=== PATIENT | female | born 1955 | race Caucasian/White ===

== ENCOUNTER 2016-11-10 14:23 | Inpatient (IN) | payer OTHER ==
[~2016-11-10] VITALS: Ht 154.9 cm; Wt 52.0 kg
[2016-11-10] VITALS (9 sets, daily range): BP systolic 110–165; BP diastolic 66–80; PULSE 60–78; RESP 15–17; TEMP 98.6; O2SAT 95–100
[2016-11-10] MEDS ORDERED: SODIUM CHLORIDE 0.9% FLUSH 10 ML FLUSH IVF PRN (14:30)
[2016-11-10] MEDS ORDERED: ASPI81CH CHEW (14:37)
[2016-11-10] MEDS ORDERED: PRED5TAB PO (14:37)
[2016-11-10] MEDS ORDERED: CLOB0.0513 (14:37)
[2016-11-10] MEDS ORDERED: ATOR40TA16 PO (14:37)
[2016-11-10] MEDS ORDERED: METO50TA PO (14:37)
[2016-11-10] MEDS ORDERED: TACR1 PO (14:37)
[2016-11-10] MEDS ORDERED: BACT800T5 PO (14:37)
[2016-11-10] MEDS ORDERED: PLAV75TA29 PO (14:37)
[2016-11-10] MEDS ORDERED: [UNRECOGNIZED DRUG - CODE] (14:37)
[2016-11-10] MEDS ORDERED: LORA-373 PO (14:38)
[2016-11-10] MEDS ORDERED: BENA25CA4 (14:38)
[2016-11-10 15:31] LABS: AUTOMATED NEUTROPHIL # 7.9 TH/MM3 (1.8-7.7); BASOPHIL % 0.4 % (0.0-2.0); EOSINOPHIL % 0.4 % (0.0-4.0); HEMATOCRIT 35.1 % (35.0-46.0); HEMO FLAGS DIFF FINAL; LYMPH % 18.9 % (9.0-44.0); MEAN CELL VOLUME 83.4 FL (80.0-100.0); MEAN CORPUSCULAR HEMOGLOBIN 27.7 PG (27.0-34.0); MEAN CORPUSCULAR HGB CONC 33.2 % (32.0-36.0); MONO % 6.3 % (0.0-8.0); PLATELET COUNT 307 TH/MM3 (150-450); RED CELL DISTRIBUTION WIDTH 16.5 % (11.6-17.2); WHITE BLOOD COUNT 10.6 TH/MM3 (4.0-11.0)
[2016-11-10 15:41] LABS: APTT (PATIENT) 21.3 SEC (24.3-30.1); INTERNATIONAL NORMALIZED RATIO 0.9 RATIO; PROTHROMBIN TIME - PATIENT 9.9 SEC (9.8-11.6)
--- NOTE | 2016-11-10 15:41 | RADRPT ---
EXAM DATE/TIME: 11/10/2016 14:33 [place] COMPARISON: No previous studies available for comparison. INDICATIONS : Chest pressure today. Four cardiac stents placed last week. MEDICAL HISTORY : Hydronephrosis. Asthma. SURGICAL HISTORY : Coronary artery stent. Cholecystectomy. Bone marrow transplant. ENCOUNTER: Initial ACUITY: 1 day PAIN SCORE: 3/10 LOCATION: Bilateral chest FINDINGS: A single view of the chest demonstrates the lungs to be symmetrically aerated without evidence of mas s, infiltrate or effusion. The cardiomediastinal contours are unremarkable. Osseous structures are intact. CONCLUSION: No acute disease. Lul Feranndo MD on November 10, 2016 at 15:37 Board Certified Radiologist. This report was verified electronically.
[2016-11-10] MEDS ORDERED: NITROGLYCERIN 2% OINT 1 GM PACKET TOP ONE (15:45)
[2016-11-10 15:46] LABS: ALT (GPT) 46 U/L (10-53); ANION GAP 10 MEQ/L (5-15); AST (GOT) 44 U/L (15-37); BICARBONATE 23.7 MEQ/L (21.0-32.0); BLOOD UREA NITROGEN 18 MG/DL (7-18); CHLORIDE 102 MEQ/L (98-107); GLOMERULAR FILTRATION RATE 87 ML/MIN (>89); MAGNESIUM 2.3 MG/DL (1.5-2.5); POTASSIUM 4.2 MEQ/L (3.5-5.1); SODIUM (NA) 136 MEQ/L (136-145)
[2016-11-10 15:50] LABS: ALKALINE PHOSPHATASE 116 U/L (45-117); CREATINE KINASE 117 U/L (26-192); TOTAL BILIRUBIN ADULT 0.7 MG/DL (0.2-1.0)
--- NOTE | 2016-11-10 15:55 | PD ---
HPI Chief Complaint: Chest Pain Time Seen by Provider: 14:28 Travel History International Travel<30 days: No Contact w/Intl Traveler<30days: No Traveled to known affect area: No History of Present Illness HPI 61-year-old female presents with central chest pressure. She states 5 days ago she had 2 stents placed after having a blockage. She was given 4 baby aspirin and 2 nitroglycerin prior to arrival. Her chest pain is nearly resolved currently. She states it was 8 and now is a 3. She denies other concurrent complaints. She denies specific modifying factors. States her heart catheterization was at [facility] [place] [facility]. She states today she was at the [place] for follow-up and she got sent here for further care given she had chest pain. Quality is pressure. PFSH Past Medical History Asthma: Yes Genitourinary: Yes (hydronephrosis) Medical other: Yes (bone marrow transplant) Myocardial Infarction: Yes (2003) Influenza Vaccination: No Menopausal: Yes Past Surgical History Cardiac Surgery: Yes (left athroscopy) Cholecystectomy: Yes Eye Surgery: Yes (bilateral cataracts) Social History Alcohol Use: No Tobacco Use: No Substance Use: No Allergies-Medications (Allergen,Severity, Reaction): Coded Allergies: No Known Allergies (Unverified , 11/10/16) Reported Meds & Prescriptions Reported Meds & Active Scripts Active Reported Benadryl Allergy (Diphenhydramine HCl) 25 Mg Cap Lorazepam 0.5 Mg Tab 0.5 Mg PO DAILY PRN Hypotears Opth Oint (Artificial Tear Opth Oint) 1 Oint 1 Clobetasol Emollient Topical 0.05% Cream Bactrim DS (Sulfamethoxazole-Trimethoprim) 800-160 Mg Tab 1 Tab PO BID Atorvastatin (Atorvastatin Calcium) 40 Mg Tab 40 Mg PO HS Plavix (Clopidogrel Bisulfate) 75 Mg Tab 75 Mg PO DAILY Aspirin 81 Mg Chew 81 Mg CHEW DAILY Prograf (Tacrolimus) 1 Mg Cap 1 Mg PO BID Prednisone 5 Mg Tab 5 Mg PO BID Metoprolol Tartrate 50 Mg Tab 50 Mg PO BID Review of Systems Except as stated in HPI: all other systems reviewed are Neg Physical Exam Narrative GENERAL: Well-nourished, well-developed patient. SKIN: Warm and dry. HEAD: Normocephalic and atraumatic. EYES: No injection or drainage. ENT: No nasal drainage noted. NECK: Supple, trachea midline. CARDIOVASCULAR: Regular rate and rhythm RESPIRATORY: No increased effort. No accessory muscle use. NEUROLOGICAL: Awake and alert. Motor and sensory grossly within normal limits. Normal speech. Data Data Last Documented VS Vital Signs Date Time Temp Pulse Resp B/P Pulse Ox O2 Delivery O2 Flow Rate FiO2 11/10/16 16:00 66 17 135/70 100 11/10/16 14:39 Room Air 11/10/16 14:25 98.6 Orders Electrocardiogram (11/10/16 14:28) B-Type Natriuretic Peptide (11/10/16 14:28) Ckmb (Isoenzyme) Profile (11/10/16 14:28) Complete Blood Count With Diff (11/10/16 14:) Comprehensive Metabolic Panel (11/10/16 14:) Magnesium (Mg) (11/10/16 14:28) Prothrombin Time / Inr (Pt) (11/10/16 14:) Act Partial Throm Time (Ptt) (11/10/16 14:28) Troponin I (11/10/16 14:28) Chest, Single Ap (11/10/16 14:28) Ecg Monitoring (11/10/16 14:28) Bilateral Bp Monitoring (11/10/16 14:28) Iv Access Insert/Monitor (11/10/16 14:28) Oximetry (11/10/16 14:28) Sodium Chloride 0.9% Flush (Ns Flush) (11/10/16 14:30) Nitroglycerin 2% Oint (Nitroglycerin 2% (11/10/16 15:45) CKMB (11/10/16 15:00) CKMB% (11/10/16 15:00) Consult Cardiology (11/10/16 ) Admit Order (Ed Use Only) (11/10/16 16:33) Labs Laboratory Tests Test 11/10/16 15:00 White Blood Count 10.6 TH/MM3 Red Blood Count 4.20 MIL/MM3 Hemoglobin 11.7 GM/DL Hematocrit 35.1 % Mean Corpuscular Volume 83.4 FL Mean Corpuscular Hemoglobin 27.7 PG Mean Corpuscular Hemoglobin 33.2 % Concent Red Cell Distribution Width 16.5 % Platelet Count 307 TH/MM3 Mean Platelet Volume 8.2 FL Neutrophils (%) (Auto) 74.0 % Lymphocytes (%) (Auto) 18.9 % Monocytes (%) (Auto) 6.3 % Eosinophils (%) (Auto) 0.4 % Basophils (%) (Auto) 0.4 % Neutrophils # (Auto) 7.9 TH/MM3 Lymphocytes # (Auto) 2.0 TH/MM3 Monocytes # (Auto) 0.7 TH/MM3 Eosinophils # (Auto) 0.0 TH/MM3 Basophils # (Auto) 0.0 TH/MM3 CBC Comment DIFF FINAL Differential Comment Prothrombin Time 9.9 SEC Prothromb Time International 0.9 RATIO Ratio Activated Partial 21.3 SEC Thromboplast Time Sodium Level 136 MEQ/L Potassium Level 4.2 MEQ/L Chloride Level 102 MEQ/L Carbon Dioxide Level 23.7 MEQ/L Anion Gap 10 MEQ/L Blood Urea Nitrogen 18 MG/DL Creatinine 0.68 MG/DL Estimat Glomerular Filtration 87 ML/MIN Rate Random Glucose 97 MG/DL Calcium Level 9.0 MG/DL Magnesium Level 2.3 MG/DL Total Bilirubin 0.7 MG/DL Aspartate Amino Transf 44 U/L (AST/SGOT) Alanine Aminotransferase 46 U/L (ALT/SGPT) Alkaline Phosphatase 116 U/L Total Creatine Kinase 117 U/L Creatine Kinase MB 1.9 NG/ML Troponin I 0.24 NG/ML B-Type Natriuretic Peptide 49 PG/ML Total Protein 6.8 GM/DL Albumin 3.3 GM/DL [facility] Medical Decision Making Medical Screen Exam Complete: Yes Emergency Medical Condition: Yes Medical Record Reviewed: Yes (past history confirmed, cardiac catheterization report shows successful stent to proximal and mid LAD on 11/05/16) Interpretation(s) EKG shows normal sinus rhythm at 80 without STEMI criteria CBC & BMP Diagram 11/10/16 15:00 Last 24 hours Impressions Chest X-Ray 11/10/16 1428 Signed Impressions: Service Date/Time: October 14:33 - CONCLUSION: No acute disease. Lul Fernando MD Differential Diagnosis [place], strain, gastritis, vasospasm Narrative Course Will check blood work, chest x-ray, EKG and dose with Nitropaste and reevaluate pain free, agrees to admit Physician Communication Physician Communication dr castellon states npo after midnight and will follow dr roberson agrees to admit Diagnosis Primary Impression: Unstable angina Admitting Information Admitting Physician Requests: Admit Charisma Aguayo MD November 10, 2016:55
[2016-11-10 16:01] LABS: CKMB 1.9 NG/ML (0.5-3.6)
[2016-11-10] MEDS ORDERED: ACETAMINOPHEN 325 MG TAB PO PRN (17:15)
[2016-11-10] MEDS ORDERED: LORazepam 0.5 MG TAB PO PRN (17:15)
[2016-11-10] MEDS ORDERED: MORPHINE SULFATE 4 MG/ML INJ IV PRN (17:15)
[2016-11-10] MEDS ORDERED: HEPARIN-D5W INJ 250 ML IV SCH (17:15)
[2016-11-10] MEDS ORDERED: ONDANSETRON HCL 4 MG/2 ML VIAL IV PRN (17:15)
[2016-11-10] MEDS ORDERED: HEPARIN SODIUM - IV 10,000 UNITS/10 ML VIAL IV ONE (17:15)
--- NOTE | 2016-11-10 17:24 | HHI.HP ---
[facility] Service [place] [facility] Primary Care Physician [facility] Admission Diagnosis unstable angina Diagnoses: Chief Complaint: Chest pain Travel History International Travel<30 Days: No Contact w/Intl Traveler <30 Da: No Traveled to Known Affected Are: No History of Present Illness 61-year-old female past medical history of UT, coronary disease status post stent placement in 2003 and recent stent placement 2 on 11/05/16 who presented with chest pressure. Patient stated that yesterday she felt nauseated yesterday but that resolved on its own. Today she stated that she felt the same way and then started feeling cloudy then started to have chest pressure. Patient stated [facility] which relieved the chest pressure. Patient stated the chest pressure lasted about 3 minutes. She stated during that visit her blood pressure was in the 180s over 90. Patient stated that she was concerned because after she had stent placement done about one week ago she was doing well. She stated that she was asymptomatic. Patient had ANDERSON stents of the proximal and mid LAD done in [place]. During the interview patient stated that the Nitropaste did help with her chest pressure but then it came back. By the time of the end of the interview she stated that the chest pressure resolved. Patient denies any anxiety. no hx of any bleeds. She stated she has been on heparin gtt in the past with no issues. Review of Systems Constitutional: COMPLAINS OF: Change in appetite, DENIES: Diaphoretic episodes , Fatigue, Fever, Weight gain, Weight loss, Chills, Dizziness, Night Sweats Endocrine: DENIES: Abnorml menstrual pattern, Heat/cold intolerance, Polydipsia , Polyuria, Polyphagia Eyes: DENIES: Blurred vision, Diplopia, Eye inflammation, Eye pain, Vision loss , Photosensitivity, Double Vision Ears, nose, mouth, throat: DENIES: Tinnitus, Hearing loss, Vertigo, Nasal discharge, Oral lesions, Throat pain, Hoarseness, Ear Pain, Running Nose, Epistaxis, Sinus Pain, Toothache, Odynophagia Respiratory: DENIES: Apneas, Cough, Snoring, Wheezing, Hemoptysis, Sputum production, Shortness of breath Cardiovascular: COMPLAINS OF: Chest pain, DENIES: Palpitations, Syncope, Dyspnea on Exertion, PND, Lower Extremity Edema, Orthopnea, Claudication Gastrointestinal: COMPLAINS OF: Nausea, DENIES: Abdominal pain, Black stools, Bloody stools, Constipation, Diarrhea, Vomiting, Difficulty Swallowing, Anorexia Genitourinary: DENIES: Abnormal vaginal bleeding, Dysmenorrhea, Dyspareunia, Sexual dysfunction, Urinary frequency, Urinary incontinence, Urgency, Hematuria , Dysuria, Nocturia, Vaginal discharge Musculoskeletal: DENIES: Joint pain, Muscle aches, Stiffness, Joint Swelling, Back pain, Neck pain Integumentary: DENIES: Abnormal pigmentation, Pruritus, Rash, Nail changes, Breast masses, Breast skin changes, Nipple discharge Hematologic/lymphatic: DENIES: Bruising, Lymphadenopathy Immunologic/allergic: DENIES: Eczema, Urticaria Neurologic: DENIES: Abnormal gait, Headache, Localized weakness, Paresthesias, Seizures, Speech Problems, Tremor, Poor Balance Psychiatric: DENIES: Anxiety, Confusion, Mood changes, Depression, Hallucinations, Agitation, Suicidal Ideation, Homicidal Ideation, Delusions Past Family Social History Past Medical History History leukemia Asthma Chronic bronchitis History of UT Coronary artery disease Hyperlipidemia Past Surgical History Bone marrow transplant Bilateral ureteral stent placement secondary to obstruction Left knee arthroplasty Cholecystectomy Reported Medications Benadryl Allergy (Diphenhydramine HCl) 25 Mg Cap Lorazepam 0.5 Mg Tab 0.5 Mg PO DAILY PRN Hypotears Opth Oint (Artificial Tear Opth Oint) 1 Oint 1 Clobetasol Emollient Topical 0.05% Cream Bactrim DS (Sulfamethoxazole-Trimethoprim) 800-160 Mg Tab 1 Tab PO BID Atorvastatin (Atorvastatin Calcium) 40 Mg Tab 40 Mg PO HS Plavix (Clopidogrel Bisulfate) 75 Mg Tab 75 Mg PO DAILY Aspirin 81 Mg Chew 81 Mg CHEW DAILY Prograf (Tacrolimus) 1 Mg Cap 1 Mg PO BID Prednisone 5 Mg Tab 5 Mg PO BID Metoprolol Tartrate 50 Mg Tab 50 Mg PO BID Allergies: Coded Allergies: No Known Allergies (Unverified , 11/10/16) Active Ordered Medications Current Medications Sodium Chloride (NS Flush) 2 ml UNSCH PRN IVF FLUSH AFTER USING IV ACCESS; Start 11/10/16 at 14:30 Nitroglycerin (Nitroglycerin 2% Oint) 1 inch ONCE ONCE TOP Last administered on 11/10/16t 15:59; Start 11/10/16 at 15:45; Stop 11/10/16 at 15:46; Status DC Family History Patient denied any family history of cardiovascular disease, diabetes, any autoimmune, or cancer in the family. Social History Patient lives at home with her . Denies tobacco, alcohol, or illicit drug use. Physical Exam Vital Signs Vital Signs Date Time Temp Pulse Resp B/P Pulse Ox O2 Delivery O2 Flow Rate FiO2 11/10/16 16:00 66 17 135/70 100 11/10/16 15:11 60 15 139/74 100 11/10/16 14:39 70 15 165/80 98 Room Air 142/75 11/10/16 14:25 98.6 76 15 125/73 95 11/10/16 14:25 73 15 95 Room Air Physical Exam GENERAL: This is a well-nourished, well-developed patient, in no apparent distress. SKIN: No rashes, ecchymoses or lesions. Cool and dry. HEAD: Atraumatic. Normocephalic. No temporal or scalp tenderness. EYES: Pupils equal round and reactive. Extraocular motions intact. No scleral icterus. No injection or drainage. ENT: Nose without bleeding, purulent drainage or septal hematoma. Throat without erythema, tonsillar hypertrophy or exudate. Uvula midline. Airway patent. NECK: Trachea midline. No JVD or lymphadenopathy. Supple, nontender, no meningeal signs. CARDIOVASCULAR: Regular rate and rhythm without murmurs, gallops, or rubs. no TTP on the chest. RESPIRATORY: Transmitted upper respiratory sounds. Breath sounds equal bilaterally. No wheezes, rales, or rhonchi. GASTROINTESTINAL: Abdomen soft, non-tender, nondistended. No hepato-splenomegaly , or palpable masses. No guarding. MUSCULOSKELETAL: Extremities without clubbing, cyanosis, or edema. No joint tenderness, effusion, or edema noted. No calf tenderness. Negative Homans sign bilaterally. NEUROLOGICAL: Awake and alert. Cranial nerves II through XII intact. Motor and sensory grossly within normal limits. Five out of 5 muscle strength in all muscle groups. Normal speech. Laboratory Laboratory Tests Test 11/10/16 15:00 White Blood Count 10.6 Red Blood Count 4.20 Hemoglobin 11.7 Hematocrit 35.1 Mean Corpuscular Volume 83.4 Mean Corpuscular Hemoglobin 27.7 Mean Corpuscular Hemoglobin 33.2 Concent Red Cell Distribution Width 16.5 Platelet Count 307 Mean Platelet Volume 8.2 Neutrophils (%) (Auto) 74.0 Lymphocytes (%) (Auto) 18.9 Monocytes (%) (Auto) 6.3 Eosinophils (%) (Auto) 0.4 Basophils (%) (Auto) 0.4 Neutrophils # (Auto) 7.9 Lymphocytes # (Auto) 2.0 Monocytes # (Auto) 0.7 Eosinophils # (Auto) 0.0 Basophils # (Auto) 0.0 CBC Comment DIFF FINAL Differential Comment Prothrombin Time 9.9 Prothromb Time International 0.9 Ratio Activated Partial 21.3 Thromboplast Time Sodium Level 136 Potassium Level 4.2 Chloride Level 102 Carbon Dioxide Level 23.7 Anion Gap 10 Blood Urea Nitrogen 18 Creatinine 0.68 Estimat Glomerular Filtration 87 Rate Random Glucose 97 Calcium Level 9.0 Magnesium Level 2.3 Total Bilirubin 0.7 Aspartate Amino Transf 44 (AST/SGOT) Alanine Aminotransferase 46 (ALT/SGPT) Alkaline Phosphatase 116 Total Creatine Kinase 117 Creatine Kinase MB 1.9 Troponin I 0.24 B-Type Natriuretic Peptide 49 Total Protein 6.8 Albumin 3.3 Result Diagram: 11/10/16 1500 11/10/16 1500 Imaging Last Impressions Chest X-Ray 11/10/16 1428 Signed Impressions: Service Date/Time: October 14:33 - CONCLUSION: No acute disease. Lul Fernando MD Assessment and Plan Assessment and Plan 61-year-old female with history of UT, coronary artery disease status post stent placement in 2003 and 11/05/16 PCI stent with ANDERSON of the proximal and mid LAD Chest pain -Concerning for unstable angina due to elevated troponin and clinical presentation. Patient is high risk. -Troponins are elevated at 0.24. Will continue to trend. -Line Manager already consulted by Dr. Aguayo and recommend cardiac catheterization by Dr. Bourgeois tomorrow if troponins continue to trend up. -Due to concerns of unstable angina will start heparin drip. Continue with aspirin. We'll also continue with Nitropaste every 6 hours, morphine IV when necessary for chest pain, restart metoprolol. -Patient told to let provider know she has chest pain. Elevated troponins -concerning for NSTEMI. see treatment as above. History of UT and coronary artery disease status post stent placement of proximal and mid LAD -Will continue with home regimen. Hyperlipidemia/chronic bronchitis/asthma/history of leukemia -Restart home regimen. DVT prophylaxis -Patient will be on a heparin drip. Code Status full Discussed Condition With patient and her son and daughter at bedside. Physician Certification 2 Midnight Certification Type: Admission for Inpatient Services Order for Inpatient Services The services are ordered in accordance with Medicare regulations or non- Medicare payer requirements, as applicable. In the case of services not specified as inpatient-only, they are appropriately provided as inpatient services in accordance with the 2-midnight benchmark. Estimated LOS (days): 2 2 days is the estimated time the patient will need to remain in the hospital, assuming treatment plan goals are met and no additional complications. Post-Hospital Plan: Kailee Leblanc MD November 10, 2016 17:24
--- NOTE | 2016-11-10 17:55 | EKG ---
Date Performed: 11/10/2016 Time Performed: 14:26:00 PTAGE: 61 years EKG: Sinus rhythm POSSIBLE LEFT ATRIAL ENLARGEMENT BORDERLINE ECG INTERPRETATION BASED ON A DEFAULT AGE OF 40 YEARS NO PREVIOUS TRACING DOCTOR: Sarbjit Mclaughlin Interpretating Date/Time 11/10/2016 17:53:41
[2016-11-10] MEDS: NITROGLYCERIN 2% OINT 1 GM PACKET TOP SCH (18:34)
[2016-11-10] MEDS: SODIUM CHLOR 0.9% 1000 ML INJ 1,000 ML IV SCH (18:34)
[2016-11-10] MEDS: TACROLIMUS 1 MG CAP PO SCH (21:00)
[2016-11-10] MEDS: predniSONE 5 MG TAB PO SCH (21:00)
[2016-11-10] MEDS: SULFAMETHOXAZOLE-TRIMETHOPRIM DS 800-160 MG TAB PO SCH (21:00)
[2016-11-10] MEDS: SODIUM CHLORIDE 0.9% FLUSH 10 ML FLUSH IV FLUSH SCH (22:47)
[2016-11-10] MEDS: METOPROLOL TARTRATE 50 MG TAB PO SCH (22:48)
[2016-11-10] MEDS: ATORVASTATIN 40 MG TAB PO SCH (22:48)
[2016-11-10] MEDS ORDERED: HEPARIN SODIUM - IV 10,000 UNITS/10 ML VIAL IV PRN ×2 (23:15)
[2016-11-11] VITALS (18 sets, daily range): BP systolic 93–146; BP diastolic 49–77; PULSE 60–96; RESP 16–20; TEMP 97.9–98.7; O2SAT 96–100
[2016-11-11 00:08] LABS: HEMATOCRIT 33.1 % (35.0-46.0); MEAN CELL VOLUME 83.8 FL (80.0-100.0); MEAN CORPUSCULAR HEMOGLOBIN 27.3 PG (27.0-34.0); MEAN CORPUSCULAR HGB CONC 32.6 % (32.0-36.0); PLATELET COUNT 289 TH/MM3 (150-450); RED BLOOD COUNT 3.95 MIL/MM3 (4.00-5.30); RED CELL DISTRIBUTION WIDTH 16.5 % (11.6-17.2); REVIEW FLAG FINAL; WHITE BLOOD COUNT 8.1 TH/MM3 (4.0-11.0)
[2016-11-11 00:22] LABS: APTT (PATIENT) 47.4 SEC (24.3-30.1)
[2016-11-11] MEDS ORDERED: SYMB80AE INH (00:43)
[2016-11-11 05:34] LABS: HEMATOCRIT 35.3 % (35.0-46.0); MEAN CELL VOLUME 84.5 FL (80.0-100.0); MEAN CORPUSCULAR HEMOGLOBIN 26.9 PG (27.0-34.0); MEAN CORPUSCULAR HGB CONC 31.9 % (32.0-36.0); PLATELET COUNT 283 TH/MM3 (150-450); RED BLOOD COUNT 4.18 MIL/MM3 (4.00-5.30); RED CELL DISTRIBUTION WIDTH 16.6 % (11.6-17.2); REVIEW FLAG FINAL; WHITE BLOOD COUNT 6.5 TH/MM3 (4.0-11.0)
[2016-11-11] MEDS: NITROGLYCERIN 2% OINT 1 GM PACKET TOP SCH ×3 (06:14→18:00)
--- NOTE | 2016-11-11 08:18 | EKG ---
Date Performed: 11/10/2016 Time Performed: 21:55:00 PTAGE: 61 years EKG: Sinus rhythm WITH OCCASIONAL SUPRAVENTRICULAR PREMATURE COMPLEXES BORDERLINE ECG NO SIGNIFICANT CHANGE FROM PRIOR ELECTROCARDIOGRAM. PREVIOUS TRACING : 11/10/2016 14.26 DOCTOR: Sarbjit Mclaughlin Interpretating Date/Time 11/11/2016 08:17:49
[2016-11-11 08:38] LABS: APTT (PATIENT) 39.7 SEC (24.3-30.1)
[2016-11-11] MEDS: SODIUM CHLORIDE 0.9% FLUSH 10 ML FLUSH IV FLUSH SCH (09:00)
[2016-11-11] MEDS: METOPROLOL TARTRATE 50 MG TAB PO SCH ×2 (09:00→20:43)
[2016-11-11] MEDS: SULFAMETHOXAZOLE-TRIMETHOPRIM DS 800-160 MG TAB PO SCH ×2 (09:51→20:42)
[2016-11-11] MEDS: predniSONE 5 MG TAB PO SCH ×2 (09:51→20:43)
[2016-11-11] MEDS: ASPIRIN 81 MG CHEW TAB CHEW SCH (09:51)
[2016-11-11] MEDS: CLOPIDOGREL 75 MG TAB PO SCH (09:51)
--- NOTE | 2016-11-11 10:59 | MB ---
cc: DARRELL NAIR M.D. DATE OF CONSULTATION: 11/11/2016 REASON FOR CONSULTATION: Pritesh is a very pleasant 61 lady, status post PCI remotely. I then had two stents placed last Miquel at an outside facility, had some negative symptoms prior to that which improved significantly after the procedure and yesterday she developed more chest pain. She did not have nausea, vomiting, went to emergency room. Currently she is resting comfortably on heparin drip. She otherwise denies any fever, chills, cough, GI bleeding. Paroxysmal nocturnal dyspnea, orthopnea, dizziness. 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 Myocardial infarction 2003. Left arthroscopy Cholecystectomy. Bilateral cataract surgery. SOCIAL HISTORY Denies tobacco or alcohol use. ALLERGIES None. MEDICATIONS PRIOR TO ADMISSION 1. Benadryl. 2. Lorazepam 3. <<0:55>> 4. Cobestasol. 5. Bactrim. 6. Atorvastatin 7. Plavix 8. Aspirin 9. Prograf. 10. Prednisone 11. Metoprolol b.i.d. MEDICATIONS IN THE HOSPITAL: 1. Aspirin 81 once daily. 2. Clopidogrel 75 daily 3. IV heparin. 4. Atorvastatin 40 HS. 5. Metoprolol 50 b.i.d. 6. Prednisone 5 mg b.i.d. 7. Bactrim 1 twice a day. 8. Tacrolimus one b.i.d. 9. half inch Nitro paste. PHYSICAL EXAMINATION VITAL SIGNS: Blood pressure 95/62, pulse 72, Respiratory rate 20, temperature 98.2. IN GENERAL: She is alert and oriented times three. In no acute distress. NECK: The neck is supple, no jugular venous distention, no bruits. CARDIOVASCULAR SYSTEM: S1, S2, no murmurs, rubs or gallops. LUNGS: Clear to auscultation bilaterally. ABDOMEN: The abdomen is soft, nontender, nondistended, positive bowel sounds. EXTREMITIES: No lower extremity edema. LABORATORY DATA White count 6.5, hemoglobin 0.3, hematocrit 35.8, platelet count 283, sodium 36, potassium 4.2412, bicarb 23.71 85.68, troponin is 0.24 followed 0.17 and 0.17. CK negative x3, albumin 3.3, AST is 44, INR 0.9, PTT 39.7. Chest x-ray No acute disease. EKG normal sinus rhythm at 78 beats per minute otherwise normal. FINAL DIAGNOSIS: 1. Non STEMI 2. Coronary disease. 3. Bone marrow transplant. 4. Anemia. 5. Elevated liver enzymes. DISCUSSION Given the recurrent symptoms status post complex intervention with two stents placed and the previous stent as described by the patient and elevated troponin non stenting I do think left heart catheterization is medically necessary. We will schedule this today. Continue aspirin, Plavix, heparin, beta deana, nitro p.r.n. MD BRITTNEE Larson/elvia /10:24 AM /10:31 AM
[2016-11-11] MEDS: TACROLIMUS 1 MG CAP PO SCH ×2 (12:29→20:43)
[2016-11-11 12:53] LABS: BICARBONATE 24.7 MEQ/L (21.0-32.0); POTASSIUM 3.5 MEQ/L (3.5-5.1)
--- NOTE | 2016-11-11 16:00 | HHI.PR ---
Subjective Remarks f/u for chest pain. patient denied any chest pain. she had episode of hematuria. she has no other complaints. Denied any N/V, SOB or lightheadedness or dizziness. she is scheduled for cardiac catheterization at 3 pm. Objective Vitals Vital Signs Date Time Temp Pulse Resp B/P Pulse Ox O2 Delivery O2 Flow Rate FiO2 11/11/16 14:07 21 11/11/16 12:00 98.7 73 16 105/53 99 11/11/16 08:53 72 11/11/16 08:49 98.2 72 20 95/62 100 11/11/16 06:19 98.1 71 16 117/62 99 11/11/16 00:00 97.9 60 16 117/66 96 11/10/16 22:59 66 16 130/66 100 11/10/16 20:00 78 16 110/78 100 11/10/16 19:13 75 16 134/73 99 Room Air 11/10/16 18:35 75 16 144/77 99 Room Air 11/10/16 18:31 97 21 11/10/16 16:00 66 17 135/70 100 I/O 11/10/16 11/10/16 11/10/16 11/11/16 11/11/16 11/11/16 07:00 15:00 23:00 07:00 15:00 23:00 Intake Total 240 ml Output Total 500 ml Balance -260 ml Intake Oral 240 ml Output Urine Total 500 ml # Voids 1 Result Diagram: 11/11/16 0450 11/11/16 1116 Objective Remarks GENERAL: in NAD CARDIOVASCULAR: Regular rate and rhythm without murmurs, gallops, or rubs. RESPIRATORY: Breath sounds equal bilaterally. No accessory muscle use. GASTROINTESTINAL: Abdomen soft, non-tender, nondistended. MUSCULOSKELETAL: No cyanosis, or edema. BACK: Nontender without obvious deformity. No CVA tenderness. Medications and IVs Current Medications Sodium Chloride (NS Flush) 2 ml UNSCH PRN IVF FLUSH AFTER USING IV ACCESS Last administered on 11/10/16 23:52; Start 11/10/16 at 14:30 Nitroglycerin (Nitroglycerin 2% Oint) 1 inch ONCE ONCE TOP Last administered on 11/10/16 15:59; Start 11/10/16 at 15:45; Stop 11/10/16 at 15:46; Status DC Sodium Chloride (NS Flush) 2 ml BID IV FLUSH Last administered on 11/10/16 22: 47; Start 11/10/16 at 21:00 Nitroglycerin (Nitroglycerin 2% Oint) 0.5 inch Q6HR TOP Last administered on 06:14; Start 11/10/16 at 18:00 Morphine Sulfate (Morphine Inj) 2 mg Q30M PRN IV CHEST PAIN; Start 11/10/16 at 17:15 Acetaminophen (Tylenol) 650 mg Q6H PRN PO HEADACHE OR TEMP > 101 F; Start 11/10 at 17:15 Ondansetron HCl (Zofran Inj) 4 mg Q6H PRN IV NAUSEA OR VOMITING; Start at 17:15 Heparin Sodium (Porcine) (Heparin Inj) 3,000 units ONCE ONCE IV Last administered on 11/10/16 18:28; Start 11/10/16 at 17:15; Stop 11/10/16 at 17:19 ; Status DC Heparin Sodium (Porcine) (Heparin Inj) 5,000 units UNSCH PRN IV APTT LESS THAN 25; Start 11/10/16 at 23:15 Heparin Sodium (Porcine) 2500 units 2,500 units UNSCH PRN IV APTT 25 TO 39; Start 11/10/16 at 23:15 Heparin Sodium/ Dextrose (Heparin-D5W Inj) 250 ml @ 0 mls/hr TITRATE IV Last administered on 11/10/16 18:31; Start 11/10/16 at 17:15 Aspirin (Aspirin Chew) 81 mg DAILY CHEW Last administered on 11/11/16 09:51; Start 11/11/16 at 09:00 Atorvastatin Calcium (Lipitor) 40 mg HS PO Last administered on 11/10/16 22:48 ; Start 11/10/16 at 21:00 Clopidogrel Bisulfate (Plavix) 75 mg DAILY PO Last administered on 11/11/16 09 :51; Start 11/11/16 at 09:00 Lorazepam (Ativan) 0.5 mg DAILY PRN PO ANXIETY; Start 11/10/16 at 17:15 Metoprolol Tartrate (Lopressor) 50 mg BID PO Last administered on 11/10/16 22: 48; Start 11/10/16 at 21:00 Prednisone (Deltasone) 5 mg BID PO Last administered on 11/11/16 09:51; Start 11/10/16 at 21:00 Trimethoprim/ Sulfamethoxazole (Bactrim Ds 800-160 Mg) 1 tab BID PO Last administered on 11/11/16 09:51; Start 11/10/16 at 21:00 Tacrolimus 1 mg 1 mg BID PO Last administered on 11/11/16 12:29; Start at 21:00 Sodium Chloride (NS 1000 ml Inj) 1,000 ml @ 75 mls/hr [id number] IV Last administered on 11/10/16 18:34; Start 11/10/16 at 17:30 A/P Assessment and Plan 61-year-old female with history of GA, coronary artery disease status post stent placement in 2003 and 11/05/16 PCI stent with ANDERSON of the proximal and mid LAD Chest pain -Concerning for unstable angina due to elevated troponin and clinical presentation. Patient is high risk. -Troponins are elevated at 0.24 and is trending down.. -manager business continuity consulted and scheduled for a cardiac catherization today. -Continue with aspirin, Nitropaste every 6 hours, morphine IV when necessary for chest pain, and metoprolol. -heparin gtt held due to hematuria and since patient is asymptomatic. hematuria -most likely due to hepatrin gtt. -d/c heparin gtt. -continue to monitor. Elevated troponins -concerning for NSTEMI. see treatment as above. History of GA and coronary artery disease status post stent placement of proximal and mid LAD -continue with home regimen. Hyperlipidemia/chronic bronchitis/asthma/history of leukemia -continue home regimen. DVT prophylaxis -heparin gtt stop due to hematuria. SCDs. Discharge Planning patient schedule for catheterization today. Also need hematuria to improve before discharge. Kailee Lacey MD November 11, 2016 16:00
[2016-11-11] MEDS ORDERED: IOHEXOL 350 MG/ML 100 ML BTL (for Cath Lab) OTHER ONE (16:22)
[2016-11-11] MEDS ORDERED: HEPARIN-NS/PF INJ 500 ML ONE (16:34)
[2016-11-11] MEDS ORDERED: HEPARIN SODIUM - IV 10,000 UNITS/10 ML VIAL ONE (17:00)
[2016-11-11] MEDS ORDERED: ADENOSINE STRESS TEST INJ 90 MG/30 ML VIAL ONE (17:05)
[2016-11-11] MEDS ORDERED: SODIUM CHLORIDE 0.9% FLUSH 10 ML FLUSH PRN (17:30)
[2016-11-11] MEDS ORDERED: MISC INFORMATION XX ONE (17:30)
--- NOTE | 2016-11-11 17:39 | CATHPROC ---
Patient Name: REBECCA AUGUSTIN Study #: [id number] Initial MD: Antonio Bourgeois Date of : 1955 Study Date: 11/11/2016 Cardiac Catheterization Report 11/11/2016 5:38:57 PM Financial #: [id number] 1 of 10 Patient Name: REBECCA AUGUSTIN Study #: [id number] Initial MD: Antonio Bourgeois Date of : 1955 Study Date: 11/11/2016 Entire Case Report Patient Information Patient Name REBECCA AUGUSTIN Date of 1955 Age 61 years Financial # [id number] Gender F AlternateID Lab Number 3 Accession # Room Number Height (in) 61.0 Height (cm) 154.9 BSA 1.50 Weight (lbs) 115.3 Weight (kg) 52.4 Patient Address/Phone Number Home Address [facility] Home Phone Number [address] [facility] [address] Study Information Study Number Scheduled Start Study Start 931-17 11/11/2016 Nov 11 2016 4:30PM Referring Institution Admit Source Facility Department 1 Emergency department [facility] - [facility] Physician and Clinical Staff Initial Antonio Aguilar RN, Robin Pope,HETAL Other cathlab, cathlab Recorder Holland Quintanilla RCIS(BS) Scrub Jazmyn Copeland RT(R) Procedures Performed Procedure Location (Site) Vessel Name Coronary Angiograms LCA Left Coronary Coronary Angiograms RCA Right Coronary LV Gram-hand inj. LV LV Ventricle Wire insertion Fem Art (left) Femoral Art 11/11/2016 5:38:57 PM Financial #: [id number] 2 of 10 Patient Name: REBECCA AUGUSTIN Study #: [id number] Initial MD: Antonio Bourgeois Date of : 1955 Study Date: 11/11/2016 Equipment Time Para Educator Description Size Mfg Part Number Used/Scraped TRANSDUCER, TRUWAVE 16:31 amBX CARRASCO * [id number] Used W/Vinveli [id number] 16:31 MEDLINE INDUST[employer] PACK, CCL CUSTOM * Used *[id number] 16:31 MEDLINE PACER PEN, SKIN DUAL W/ RULER * [id number] Used PSI-4F-- 16:53 [employer] SHEATH, FR4.5 PRELUDE 11CM FR 4.5 Used 035ACT PSI-6F-- 17:05 [employer] SHEATH, FR6.5 PRELUDE 11CM FR 6.5 038ACT Used *[id number] 16:31 [employer] WIRE, 3MMJ .035 180CM 180CM [id number] Used [id number] 16:31 NAMIC MANIFOLD, 4 PORT * Used *[id number] 16:31 NYCOMED OMNIPAQUE, 350 MG, 100ML 100ML [id number] Used [id number] 16:31 WILDE [employer] BLANKET,WARM AIR CCL * Used *[id number] 17:09 [place] PRIME WIRE, VERRATA 185CM 185CM [id number] Used Insurance Information Insurance Payor [facility] Third Alliance Party Third Alliance Party Number NF SG [facility] History: Current Medications Medication Dosage/Unit Route Frequency Last Date/Time Taken ASA Beta Magali PLAVIX Statins (any) History: Allergies Allergy Reaction No Known Allergies 11/11/2016 5:38:57 PM Financial #: [id number] Patient Name: REBECCA AUGUSTIN Study #: [id number] Initial MD: Antonio Bourgeois Date of : 1955 Study Date: 11/11/2016 History: Risk Factors Family History of Hypertension Dyslipidemia Previous NE Previous Heart Failure Premature CAD No Yes No Yes No Prior Valve Prior PCI Prior PCIDate Prior CABG Surgery No Yes 11/04/2016 No Cerebrovascular Peripheral Artery Chronic Lung On Dialysis Diabetes Disease Disease Disease No No No Yes No History: Symptoms/Diagnosis Selection Items Chest pain History: CV Disease Selection Items Known CAD History: Stress Tests Stress or Imaging Studies Performed No History: Other Disease Selection Items CAD History: NE/CV Data Previous Cath Date 11/04/2016 History: Other Current Smoker No Labs Hgb (g/dl) Hct (%) WBC (l/cumm) Platelets (thousands) 12.00-18.00 37.00-55.00 4.80-10.80 140.00-450.00 11.3 35.3 6.5 283 BUN (mg/dl) Creatinine (mg/dl) BUN:Creatinine (1:x) 8.00-20.00 0.10-9.00 10.00-20.00 12 0.8 15 Na (meq/l) K (meq/l) 138.00-146.00 3.80-5.10 142 3.5 11/11/2016 5:38:57 PM Financial #: [id number] 4 of 10 Patient Name: REBECCA AUGUSTIN Study #: [id number] Initial MD: Antonio Bourgeois Date of : 1955 Study Date: 11/11 INR (PTT:PT) 0.50-2.00 0.9 Troponin I (ng/ml) CPK-MB (ng/ML) 0.40-2.30 0.00-7.00 0.17 Not Drawn Medication Medication Total Dose (Bolus/Oral) Medication Total Dosage/Unit 1% XYLOCAINE 20 mL HEPARIN 3600 units Medications (Bolus/Oral) Medication Time Given Dosage/Unit Administered By Reason 1% XYLOCAINE 11/11/2016 4:50:06 PM 20 mL Antonio Bourgeois 20 mL 1% XYLOCAINE given in lab by Antonio Bourgeois in Left Groin via Subcutaneous. HEPARIN 11/11/2016 5:00:33 PM 3600 units Robin Hernandez 3600 units HEPARIN given in lab by Robin Hernandez RN in Left Antecubital via Peripheral IV. Medication (Drip) Medication Time Given Dosage/Unit Concentration/Unit Diluent (ml) Solutio n ADENOSINE DRIP 11/11/2016 5:14:36 PM 146.947 mcg/kg/min 90 mg 90 NaCl .9 146.947 mcg/kg/min ADENOSINE DRIP given in lab by Robin Hernandez RN in Left Antecubital via Periphera l IV. Pump/Drip Flow = 462 ml/hr using NaCl .9 with a concentration of 90 mg in 90 ml. ADENOSINE DRIP 11/11/2016 5:17:54 PM 0 units/hr 0 STOPPED 0 units/hr ADENOSINE DRIP STOPPED given in lab by Robin Hernandez RN. Pump/Drip Flow = 0 ml/hr using [ Solution Name]. IV Solutions 11/11/2016 4:29:53 PM 0 mL (IV) 500 NaCl .9 Patient arrived on IV Solutions in Left Antecubital via Peripheral IV. Pump/Drip Flow = 20 ml/hr usin g NaCl .9. 11/11/2016 5:38:57 PM Financial #: [id number] 5 of 10 Patient Name: REBECCA AUGUSTIN Study #: [id number] Initial MD: Antonio Bourgeois Date of : 1955 Study Date: 11/11/2016 Initial Case Assessment Cardiovascular HR Rhythm NIBP Chest Pain 69 sinus 128/75 0 Edema Present Skin color Skin None Normal Warm Dry Circulatory - Right Pulses Dorsalis Pedis Femoral 2 3 Scale (0,1,2,3,4,d) Circulatory - Left Pulses Dorsalis Pedis Femoral 3 3 Scale (0,1,2,3,4,d) Neurological State Oriented to time-place- Alert Moves all extremities person Respiration - General Respiration Rate SpO2 (%) (B/min) 15 100 Vitals Summary Pain Time HR NIBP SpO2 Resp Temp EtCO2 Apnea Nora Rich Comment Level 16:34:03 69 128/75 99.0 18 10 0 2 16:39:02 70 111/56 100.0 17 10 0 2 16:43:55 68 118/62 100.0 15 10 0 2 16:48:58 71 113/63 99.0 14 10 0 2 16:53:55 78 122/67 100.0 22 10 0 2 16:59:35 83 148/77 98.0 12 10 0 2 17:04:06 87 120/61 99.0 16 10 0 2 17:09:01 83 117/56 99.0 15 10 0 2 17:14:00 82 125/65 99.0 30 10 0 2 17:19:03 95 128/62 99.0 24 10 0 2 17:24:02 83 125/67 98.0 36 10 0 2 17:29:05 85 125/57 17 10 0 2 11/11/2016 5:38:57 PM Financial #: [id number] 6 of 10 Patient Name: REBECCA AUGUSTIN Study #: [id number] Initial MD: Antonio Bourgeois Date of : 1955 Study Date: 11/11/2016 Nora Score Summary Time Activity Resp Circ LOC Color Total Score 16:34:03 2 2 2 2 2 10 16:39:02 2 2 2 2 2 10 16:43:55 2 2 2 2 2 10 16:48:58 2 2 2 2 2 10 16:53:55 2 2 2 2 2 10 16:59:35 2 2 2 2 2 10 17:04:06 2 2 2 2 2 10 17:09:01 2 2 2 2 2 10 17:14:00 2 2 2 2 2 10 17:19:03 2 2 2 2 2 10 17:24:02 2 2 2 2 2 10 17:29:05 2 2 2 2 2 10 Nora Score Definition Table Activity - 0 Activity - 1 Activity - 2 No Movement to Command Weak Hand Grasp Lift Head, Good Hand Grasp Respiration - 0 Respiration - 1 Respiration - 2 Apneic or Obstructed Shallow Breath, Airway Adjunct Deep Breath, Cough Freely Circulation - 0 Circulation - 1 Circulation - 2 B/P > 50% Admission B/P B/P > 20-50% Admission B/P B/P Stable X3 Level of Consciousness - 0 Level of Consciousness - 1 Level of Consciousness - 2 Not Responding Arousable On Calling Awake and Aware Color - 0 Color- 1 Color - 2 Cyanotic Lips, Nailbed, Skin Pale, Dusky [place] Or Normal Chronological Log Time Study Chronological Log 16:29:35 Patient arrived via Bed. 16:29:36 Patient Name, D.O.B, / Armband Verified By R.N. 16:29:37 Consent signed by the physician and the patient and verified by the [facility] staff. 16:29:38 Pre-op and post- op instructions given; patient acknowledges understanding of instruction s. 16:29:45 Presedation assessment performed by [facility] RN. 16:29:46 Immediate Presedation assesment performed by physician. 16:29:47 Patient has been NPO for More than 6Hrs. 16:29:47 Skin Breakdown- NONE PER PATIENT 16:29:51 Patient Warmer Placed on the Table. 11/11/2016 5:38:57 PM Financial #: [id number] Patient Name: REBECCA AUGUSTIN Study #: [id number] Initial MD: Antonio Bourgeois Date of : 1955 Study Date: 11/11/2016 16:29:52 Jamarcus Prominences Protected 16:29:52 A # 20 IV was noted in the Antecubital (left). Grade = 0 16:29:53 Patient arrived on IV Solutions in Left Antecubital via Peripheral IV. Pump/Drip Flow = 20 ml/hr using NaCl .9. 16:29:54 History and physical on the chart or being dictated. Vitals capture started with the following parameters, Patient=Adult, Interval=5 min, Initial Pr cqekkm=819 mmHg, 16:33:26 Deflation Rate=5 mmHg 16:34:03 HR=69 bpm, YNKN=847/75 mmhg, SpO2=99.0 %, Resp=18 B/min, Pain=0, Nora=10, Rich=2 Assessment: Initial Case, HR=69 BPM, Rhythm=sinus, ABKE=835/75 mmhg, Chest Pain=0, Edema=None, Color=Normal, Skin = Warm, Dry Right Pulses: Walter Ped=2, Femoral=3 16:34:47 Left Pulses: Walter Ped=3, Femoral=3 Neurological: State=Alert, Ox3, CRONIN Respiration: Resp=15 B/min, YgY1=925 % 16:37:15 Reference ECG taken 16:37:20 Verbal Stimulation=2 Physical Stimulation=2 Airway=2 Respiration=2 TOTAL=8. (0=absent, 1=li mited, 2=present) 16:39:02 HR=70 bpm, HVQO=052/56 mmhg, AaS9=448.0 %, Resp=17 B/min, Pain=0, Nora=10, Rich=2 16:43:31 Bilateral groins prepped with 2% chlorhexidine, and with a 3 min. waiting time. 16:43:55 HR=68 bpm, AIVB=384/62 mmhg, TdL6=603.0 %, Resp=15 B/min, Pain=0, Nora=10, Rich=2 16:45:39 MD paged 16:45:43 MD responded 16:46:31 MD arrived. 16:46:34 Contrast Scanned 16:46:35 Immediate Presedation assesment performed by physician. 16:48:58 HR=71 bpm, UTYX=971/63 mmhg, SpO2=99.0 %, Resp=14 B/min, Pain=0, Nora=10, Rich=2 16:49:37 Pressure channel 1 zeroed. Time Out. Correct patient, correct procedure,correct physician, ,power injectornot loaded with contrast with surgical 16:49:43 team present. Time Out Concurred by MD, individual staff in procedure 16:49:53 Case Start 16:49:54 Verbal Stimulation=2 Physical Stimulation=2 Airway=2 Respiration=2 TOTAL=8. (0=absent, 1=li mited, 2=present) 16:50:06 20 mL 1% XYLOCAINE given in lab by Antonio Bourgeois in Left Groin via Subcutaneous. 16:52:51 Access site was Left Femoral Artery. 16:52:59 A SHEATH, FR4.5 PRELUDE 11CM FR 4.5 was advanced into the Fem Art (left) using the Percutan eous technique. 16:53:27 Activated Clotting Time Drawn A JR 4.0 INFINITI CATHETER FR 4 was advanced over a wire. OMNIPAQUE, 350 MG, 100ML 100ML was us ed for 16:53:41 injections. 16:53:55 HR=78 bpm, TIFO=262/67 mmhg, AyG1=793.0 %, Resp=22 B/min, Pain=0, Nora=10, Rich=2 Recorded Pressure: LV, HR=78, Condition=Condition 1 16:54:28 (Left Ventricle) LV 102/36/39 16:54:43 The LV was manually injected with 10 cc's and visualized. OMNIPAQUE, 350 MG, 100ML 100ML us ed. Recorded Pressure: LV, Ao, HR=82, Condition=Condition 1 16:54:46 (Left Ventricle) LV 140/8/12, (Aorta) Ao 156/77/112 Recorded Pressure: Ao, HR=80, Condition=Condition 1 16:55:09 (Aorta) Ao 164/76/115 11/11/2016 5:38:57 PM Financial #: [id number] 8 10 Patient Name: REBECCA AUGUSTIN Study #: [id number] Initial MD: Antonio Bourgeois Date of : 1955 Study Date: 11/11/2016 16:55:46 The RCA was injected and visualized at various angles. OMNIPAQUE, 350 MG, 100ML 100ML used . 16:55:52 ACT (Normal Range 90-180) = 114 16:56:37 Catheter was removed A JL 4.0 INFINITI CATHETER FR 4 was advanced over a wire. OMNIPAQUE, 350 MG, 100ML 100ML was us ed for 16:56:39 injections. 16:57:54 The LCA was injected and visualized at various angles. OMNIPAQUE, 350 MG, 100ML 100ML used . 16:59:35 HR=83 bpm, ECYC=670/77 mmhg, SpO2=98.0 %, Resp=12 B/min, Pain=0, Nora=10, Rich=2 17:00:33 3600 units HEPARIN given in lab by Robin Hernandez RN in Left Antecubital via Peripheral IV. 17:03:34 Catheter was removed 17:04:06 HR=87 bpm, PWOM=572/61 mmhg, SpO2=99.0 %, Resp=16 B/min, Pain=0, Nora=10, Rich=2 A SHEATH, FR6.5 PRELUDE 11CM FR 6.5 was exchanged in the Fem Art (left). This was necessary in order to 17:04:46 accomodate a larger catheter. 17:09:01 HR=83 bpm, RKOF=804/56 mmhg, SpO2=99.0 %, Resp=15 B/min, Pain=0, Nora=10, Rich=2 After removing the current catheter a XB 3.5 GUIDE CATHETER FR 6 was advanced over a WIRE, 3MMJ .035 180CM 17:11:06 180CM. 17:11:46 A PRIME WIRE, VERRATA 185CM 185CM was inserted via Fem Art (left). 17:14:00 HR=82 bpm, BPJL=050/65 mmhg, SpO2=99.0 %, Resp=30 B/min, Pain=0, Nora=10, Rich=2 146.947 mcg/kg/min ADENOSINE DRIP given in lab by Robin Hernandez RN in Left Antecubital via Per ipheral IV. 17:14:36 Pump/Drip Flow = 462 ml/hr using NaCl .9 with a concentration of 90 mg in 90 ml. 17:17:35 Flow Wire was was placed in the LAD Prox. The FFR measures 0.96 percent. 0 units/hr ADENOSINE DRIP STOPPED given in lab by Burfield, Robin, RN. Pump/Drip Flow = 0 ml/hr u sing [Solution 17:17:54 Name]. 17:19:03 HR=95 bpm, AROV=408/62 mmhg, SpO2=99.0 %, Resp=24 B/min, Pain=0, Nora=10, Rich=2 17:19:17 The PRIME WIRE, VERRATA 185CM 185CM was removed. 17:19:27 Catheter was removed 17:19:51 Activated Clotting Time Drawn 17:20:06 Case End 17:21:47 Catheter(s) removed without difficulty 17:21:50 In the Fem Art (left) the SHEATH, FR6.5 PRELUDE 11CM FR 6.[address] by Antonio Cohen. 17:24:02 HR=83 bpm, XORB=570/67 mmhg, SpO2=98.0 %, Resp=36 B/min, Pain=0, Nora=10, Rich=2 17:24:47 ACT (Normal Range 90-180) = 241 17:25:07 Sterile dressing applied to site 17:25:08 No case complications noted. 17:25:11 Cine recording checked. 17:25:13 Bedside Report will be given. 17:25:17 Contrast Scanned 17:25:50 CIC called. Advised a-line needed. 17:29:05 HR=85 bpm, IGJZ=067/57 mmhg, Resp=17 B/min, Pain=0, Nora=10, Rich=2 17:29:49 Vitals capture stopped. 17:32:18 [facility] 11/11/2016 5:38:57 PM Financial #: [id number] Patient Name: REBECCA AUGUSTIN Study #: [id number] Initial MD: Antonio Bourgeois Date of : 1955 Study Date: 11/11/2016 Recorded Pressures: Condition 1 Time Chamber Pressure Manual Override (*) 16:54:28 LV 102/36/39 s/bd/ed 16:54:46 LV 140/8/12 s/bd/ed 16:54:46 Ao 156/77/112 s/d/m 16:55:09 Ao 164/76/115 s/d/m End Study - Contrast Media Used In Study Contrast Total Opened (mL) Total Used (mL) Total Wasted (mL) Omnipaque 90 90 0 End Study - Maximum Contrast Load Max Contrast Load (mL) 327.6 End Study - Radiation Exposure Fluoro Time (minutes) 3.9 End Study - Patient Disposition Complications Transferred To Interventional Outcome No Telemetry Bed No attempt made 11/11/2016 5:38:57 PM Financial #: [id number]
[2016-11-11] MEDS: ATORVASTATIN 40 MG TAB PO SCH (20:43)
[2016-11-11] MEDS: SODIUM CHLORIDE 0.9% FLUSH 10 ML FLUSH SCH (20:44)
[2016-11-11] MEDS: SODIUM CHLOR 0.9% 1000 ML INJ 1,000 ML IV SCH (20:44)
[2016-11-12] VITALS (19 sets, daily range): BP systolic 87–125; BP diastolic 52–77; PULSE 65–96; RESP 18–20; TEMP 97.8–98.4; O2SAT 98–100
[2016-11-12 04:17] LABS: AUTOMATED NEUTROPHIL # 5.2 TH/MM3 (1.8-7.7); BASOPHIL % 0.2 % (0.0-2.0); EOSINOPHIL % 0.7 % (0.0-4.0); HEMATOCRIT 34.8 % (35.0-46.0); HEMO FLAGS DIFF FINAL; LYMPH % 18.1 % (9.0-44.0); LYMPHOCYTE # 1.3 TH/MM3 (1.0-4.8); MEAN CELL VOLUME 84.3 FL (80.0-100.0); MEAN CORPUSCULAR HEMOGLOBIN 27.3 PG (27.0-34.0); MEAN CORPUSCULAR HGB CONC 32.4 % (32.0-36.0); PLATELET COUNT 280 TH/MM3 (150-450); RED BLOOD COUNT 4.13 MIL/MM3 (4.00-5.30); RED CELL DISTRIBUTION WIDTH 16.5 % (11.6-17.2); WHITE BLOOD COUNT 7.1 TH/MM3 (4.0-11.0)
[2016-11-12 04:34] LABS: BICARBONATE 23.7 MEQ/L (21.0-32.0); POTASSIUM 4.1 MEQ/L (3.5-5.1)
[2016-11-12 04:36] LABS: HDL CHOLESTEROL 76.1 MG/DL (40.0-60.0)
[2016-11-12] MEDS: NITROGLYCERIN 2% OINT 1 GM PACKET TOP SCH ×3 (05:42→11:21)
[2016-11-12] MEDS: SODIUM CHLORIDE 0.9% FLUSH 10 ML FLUSH SCH (09:00)
[2016-11-12] MEDS: CLOPIDOGREL 75 MG TAB PO SCH (09:09)
[2016-11-12] MEDS: predniSONE 5 MG TAB PO SCH (09:09)
[2016-11-12] MEDS: METOPROLOL TARTRATE 50 MG TAB PO SCH (09:09)
[2016-11-12] MEDS: SULFAMETHOXAZOLE-TRIMETHOPRIM DS 800-160 MG TAB PO SCH (09:09)
[2016-11-12] MEDS: TACROLIMUS 1 MG CAP PO SCH (09:09)
[2016-11-12] MEDS: ASPIRIN 81 MG CHEW TAB CHEW SCH (09:09)
[2016-11-12] MEDS: SODIUM CHLOR 0.9% 1000 ML INJ 1,000 ML IV SCH (09:11)
--- NOTE | 2016-11-12 11:39 | HHI.DCPOC ---
Discharge Care Plan Diagnosis: (1) Unstable angina (2) Hematuria Goals to Promote Your Health * To prevent worsening of your condition and complications * To maintain your health at the optimal level Directions to Meet Your Goals Take your medications as prescribed Follow your dietary instruction Follow activity as directed Keep your appointments as scheduled Take your immunizations and boosters as scheduled If your symptoms worsen call your PCP, if no PCP go to Urgent Care Center or Emergency Room Smoking is Dangerous to Your Health. Avoid second hand smoke Call the 24-hour hour crisis hotline for domestic abuse at Zain Rivas DO November 12, 2016 11:38
--- NOTE | 2016-11-12 11:46 | HHI.PR ---
Subjective Remarks The patient was ambulating around the room. She was anxious to leave the hospital. She denied any further chest pain. She said her hematuria has improved. Discussed with nursing. Objective Vitals Vital Signs Date Time Temp Pulse Resp B/P Pulse Ox O2 Delivery O2 Flow Rate FiO2 11/12/16 11:32 97.9 79 20 125/77 100 11/12/16 10:00 96 11/12/16 09:00 90 11/12/16 08:00 86 11/12/16 07:30 98 Room Air 11/12/16 07:25 98.0 65 19 117/60 98 11/12/16 07:00 66 11/12/16 06:00 85 11/12/16 05:00 74 11/12/16 04:00 98.4 72 20 108/62 98 11/12/16 04:00 72 11/12/16 04:00 Room Air 11/12/16 03:00 70 11/12/16 02:00 68 11/12/16 01:00 69 11/12/16 00:00 67 11/12/16 00:00 Room Air 11/12/16 00:00 98.2 67 18 96/52 99 11/11/16 23:00 71 11/11/16 22:00 75 11/11/16 21:00 74 11/11/16 20:00 67 11/11/16 20:00 98.1 67 20 145/71 98 11/11/16 19:00 85 18 146/64 99 11/11/16 18:00 72 16 122/65 99 11/11/16 17:37 132/77 11/11/16 16:28 98.4 79 20 93/49 99 11/11/16 15:00 96 11/11/16 14:07 21 11/11/16 14:00 72 11/11/16 12:00 98.7 73 16 105/53 99 I/O 11/11/16 11/11/16 11/11/16 11/12/16 11/12/16 11/12/16 07:00 15:00 23:00 07:00 15:00 23:00 Intake Total 240 ml 780 ml Output Total 500 ml 1200 ml 900 ml Balance -260 ml -1200 ml -120 ml Intake Oral 240 ml 480 ml IV Total 300 ml Output Urine Total 500 ml 1200 ml 900 ml # Voids 1 # Bowel Movements 0 Result Diagram: 11/12/16 0350 11/12/16 0350 Imaging Last Impressions Chest X-Ray 11/10/16 1428 Signed Impressions: Service Date/Time: October 14:33 - CONCLUSION: No acute disease. Lul Fernando MD Objective Remarks GENERAL: NAD. HEENT: NC, AT. CARDIOVASCULAR: Regular rate and rhythm without murmurs, gallops, or rubs. RESPIRATORY: Breath sounds equal bilaterally. No accessory muscle use. GASTROINTESTINAL: Abdomen soft, non-tender, nondistended. MUSCULOSKELETAL: No cyanosis, or edema. BACK: Nontender without obvious deformity. No CVA tenderness. NEURO: No gross deficits. PSYCH: Mood and affect appropriate. Procedures Cardiac catheterization 11/11. Medications and IVs Current Medications Medications (Trade) Dose Ordered Sig/Connor Route Start Time Stop Time Status Last Admin (Nitroglycerin 2% Oint) 0.5 inch Q6HR TOP 11/10/16 18:00 11/11/16 06:14 (Morphine Inj) 2 mg Q30M PRN IV 11/10/16 17:15 (Tylenol) 650 mg Q6H PRN PO 11/10/16 17:15 11/12/16 11:21 (Zofran Inj) 4 mg Q6H PRN IV 11/10/16 17:15 (Aspirin Chew) 81 mg DAILY CHEW 11/11/16 09:00 11/12/16 09:09 (Lipitor) 40 mg HS PO 11/10/16 21:00 11/11/16 20:43 (Plavix) 75 mg DAILY PO 11/11/16 09:00 11/12/16 09:09 (Ativan) 0.5 mg DAILY PRN PO 11/10/16 17:15 (Lopressor) 50 mg BID PO 11/10/16 21:00 11/12/16 09:09 (Deltasone) 5 mg BID PO 11/10/16 21:00 11/12/16 09:09 (Bactrim Ds 800-160 Mg) 1 tab BID PO 11/10/16 21:00 11/12/16 09:09 Tacrolimus 1 mg 1 mg BID PO 11/10/16 21:00 11/12/16 09:09 (NS 1000 ml Inj) 1,000 ml @ 75 mls/hr [id number] IV 11/10/16 17:30 11/11/16 20:44 (NS Flush) 2 ml UNSCH PRN .XX 11/11/16 17:30 (NS Flush) 2 ml BID .XX 11/11/16 21:00 11/12/16 09:00 A/P Assessment and Plan 61-year-old female with history of NV, coronary artery disease status post stent placement in 2003 and 11/05/16 PCI stent with ANDERSON of the proximal and mid LAD Chest pain Concerning for unstable angina due to elevated troponin and clinical presentation. Troponin peaked at 0.24. [employer] consulted and performed cardiac catheterization 11/11. Cath with normal EF and no evidence of obstructive coronary disease. LDL not elevated. - Continue cardiac regimen including aspirin and Plavix. - dc heparin gtt. Hematuria Chronic. The pt has a history of hydronephrosis and stenting. Exacerbated by heparin gtt. - d/c heparin gtt. - continue to monitor. Resolved. DVT prophylaxis: Heparin gtt stopped due to hematuria. SCDs. Discharge Planning D/c home as cleared by cardiology. Zain Rivas DO November 12, 2016 11:46
--- NOTE | 2016-11-12 13:51 | EKG ---
Date Performed: 11/12/2016 Time Performed: 06:19:14 PTAGE: 61 years EKG: Sinus rhythm Since previous tracing, no significant change noted Normal ECG PREVIOUS TRACING : 11/11/2016 19.38 DOCTOR: Carleen Riggins Interpretating Date/Time 11/12/2016 13:50:11
--- NOTE | 2016-11-12 13:51 | EKG ---
Date Performed: 11/11/2016 Time Performed: 19:38:00 PTAGE: 61 years EKG: Sinus rhythm Since previous tracing, no significant change noted Normal ECG PREVIOUS TRACING : 11/10/2016 21.55 DOCTOR: Carlene Riggins Interpretating Date/Time 11/12/2016 13:49:53
--- NOTE | 2016-11-12 15:32 | PD.CARD.PN ---
Subjective Subjective Remarks assymptomatic Objective Vital Signs / I&O Vital Signs Date Time Temp Pulse Resp B/P Pulse Ox O2 Delivery O2 Flow Rate FiO2 11/12/16 13:23 78 11/12/16 12:33 74 11/12/16 11:41 82 11/12/16 11:32 97.9 79 20 125/77 100 11/12/16 10:00 96 11/12/16 09:00 90 11/12/16 08:00 86 11/12/16 07:30 98 Room Air 11/12/16 07:25 98.0 65 19 117/60 98 11/12/16 07:00 66 11/12/16 06:00 85 11/12/16 05:00 74 11/12/16 04:00 98.4 72 20 108/62 98 11/12/16 04:00 72 11/12/16 04:00 Room Air 11/12/16 03:00 70 11/12/16 02:00 68 11/12/16 01:00 69 11/12/16 00:00 67 11/12/16 00:00 Room Air 11/12/16 00:00 98.2 67 18 96/52 99 11/11/16 23:00 71 11/11/16 22:00 75 11/11/16 21:00 74 11/11/16 20:00 67 11/11/16 20:00 98.1 67 20 145/71 98 11/11/16 19:00 85 18 146/64 99 11/11/16 18:00 72 16 122/65 99 11/11/16 17:37 132/77 11/11/16 16:28 98.4 79 20 93/49 99 I/O 11/11/16 11/11/16 11/11/16 11/12/16 11/12/16 11/12/16 06:59 14:59 22:59 06:59 14:59 22:59 Intake Total 240 ml 780 ml Output Total 500 ml 1200 ml 900 ml Balance -260 ml -1200 ml -120 ml Intake Oral 240 ml 480 ml IV Total 300 ml Output Urine Total 500 ml 1200 ml 900 ml # Voids 1 # Bowel Movements 0 Physical Exam GENERAL: SKIN: Warm and dry. HEAD: Normocephalic. EYES: No scleral icterus. No injection or drainage. NECK: Supple, trachea midline. No JVD or lymphadenopathy. CARDIOVASCULAR: Regular rate and rhythm without murmurs, gallops, or rubs. RESPIRATORY: Breath sounds equal bilaterally. No accessory muscle use. GASTROINTESTINAL: Abdomen soft, non-tender, nondistended. MUSCULOSKELETAL: No cyanosis, or edema. BACK: Nontender without obvious deformity. No CVA tenderness. Laboratory Laboratory Tests Test 11/12/16 03:50 White Blood Count 7.1 TH/MM3 Red Blood Count 4.13 MIL/MM3 Hemoglobin 11.3 GM/DL Hematocrit 34.8 % Mean Corpuscular Volume 84.3 FL Mean Corpuscular Hemoglobin 27.3 PG Mean Corpuscular Hemoglobin 32.4 % Concent Red Cell Distribution Width 16.5 % Platelet Count 280 TH/MM3 Mean Platelet Volume 7.8 FL Neutrophils (%) (Auto) 73.0 % Lymphocytes (%) (Auto) 18.1 % Monocytes (%) (Auto) 8.0 % Eosinophils (%) (Auto) 0.7 % Basophils (%) (Auto) 0.2 % Neutrophils # (Auto) 5.2 TH/MM3 Lymphocytes # (Auto) 1.3 TH/MM3 Monocytes # (Auto) 0.6 TH/MM3 Eosinophils # (Auto) 0.0 TH/MM3 Basophils # (Auto) 0.0 TH/MM3 CBC Comment DIFF FINAL Differential Comment Sodium Level 142 MEQ/L Potassium Level 4.1 MEQ/L Chloride Level 111 MEQ/L Carbon Dioxide Level 23.7 MEQ/L Anion Gap 7 MEQ/L Blood Urea Nitrogen 10 MG/DL Creatinine 0.67 MG/DL Estimat Glomerular Filtration 89 ML/MIN Rate Random Glucose 102 MG/DL Calcium Level 8.3 MG/DL Total Creatine Kinase 55 U/L Triglycerides Level 96 MG/DL Cholesterol Level 140 MG/DL LDL Cholesterol 45 MG/DL HDL Cholesterol 76.1 MG/DL Cholesterol/HDL Ratio 1.83 RATIO Assessment and Plan Problem List: (1) Unstable angina (2) NSTEMI (non-ST elevated myocardial infarction) (3) CAD (coronary artery disease) Assessment and Plan 1.) CAD - ffr=.96 prox lad stent, continue adpt, assymptomatic, ok to dc from cv standpoint, f/u [facility], d/w patient and nurse Antonio Bourgeois MD November 12, 2016 15:32
--- NOTE | 2016-11-12 23:29 | MR ---
cc: DARRELL NAIR MD DATE 11/11/16 Left heart catheterization, Left ventriculography Coronary angiography, FFR of the proximal LAD INDICATIONS Non STEMI. Recurrent chest pain status post complex PCI of the proximal LAD with two overlapping stents within a drug-eluting stent done on November 14, 2016 at an outside facility, coronary artery disease. PROCEDURE IN DETAIL The patient was brought to the cardiac catheterization laboratory, prepped and usual sterile fashion. Ten mL of 1% lidocaine was used to locally anesthetize the right common artery. 4-Ethiopian sheath subsequently placed in the left common femoral artery. The left common femoral artery was used because the patient had a cath on November 04 and closing device used. 4-Ethiopian JR-4, JL-4 catheters were used for perform left and right coronary angiography, left FINDINGS LV pressures 140/9/ 65%. Right coronary has a dense segment of calcification at the ostium has mild to moderate disease up to 20-30% angiographically. The left main coronary artery had no significant disease angiographically. The stents in the proximal mid-LAD demonstrate a 55% stenosis in the mid segment. Flow was SAMUEL III in the vessel. LAD was transapical. There was a medium to large ramus intermedius vessel which has an ostial proximal bifurcation. The more lateral segment has an ostial 30-40% stenosis. It is a medium-sized vessel. The more medial branch is a slightly larger, probably a 275 to 30-0 mm vessel with an ostial 20% stenosis. Left circumflex vessel has no significant disease angiographically. First and second obtuse marginal vessels are small 1 mm vessels, no significant disease angiographically. Third obtuse marginal vessel medium-sized vessel bifurcates in the mid distal segment. No significant obstructive disease. Due to the patient's elevated troponin, recurrent chest pain a week after her previous procedure, I did think it was medically necessary to do an FFR of the LAD. A 6-Ethiopian sheath exchanged for a 4-Ethiopian sheath. Seven unit per kg of heparin was given ACT 241, 6-Ethiopian X3 3.0 guide and a 0.014 volcano pressure wire was placed into the ramus vessel. The introducer was removed. The guide catheter was thoroughly flushed with 20 mL of normal saline. Pressure waveforms were normalized at that point. The 0.O14 volcano pressure wire was then placed into the [id number] LAD, 140 mcg per kg per minute of adenosine was infused for 3 minutes. FFR was 0.96. CONCLUSION 1. 55% in-stent stenosis of the proximal LAD stents as detailed above. It appears that the stent is probably under-deployed based on the fact that she just had the stents placed a week ago. I doubt this is tissue growth or thrombus. FFR is 0.96. Otherwise, mild two-vessel coronary artery disease as detailed above. 2. Normal left ventricular systolic function, ejection fraction 65%. 3. Recommend continue dual antiplatelet therapy, medical management of coronary artery disease, cardiac risk factor modification. MD BRITTNEE Larson/ /5:24 PM /11:15 PM
== END 2016-11-12 16:23 | disposition home or self-care (01) | DRG 281 ==
LOC: NEPE 14:23 → NEDH 16:34 → HCIS 11-11 00:07
PROVIDERS: ADMIT Hospitalist; ATTEND Hospitalist
PROC: B2111ZZ Fluoroscopy of Multiple Coronary Arteries using Low Osmolar Contrast (ICD-10-PCS; 2016-11-11)
PROC: B2151ZZ Fluoroscopy of Left Heart using Low Osmolar Contrast (ICD-10-PCS; 2016-11-11)
PROC: 4A033BC Measurement of Arterial Pressure, Coronary, Percutaneous Approach (ICD-10-PCS; 2016-11-11)
PROC: 4A023N7 Measurement of Cardiac Sampling and Pressure, Left Heart, Percutaneous Approach (ICD-10-PCS; principal; 2016-11-11 16:15)
DX: I21.4 Non-ST elevation (NSTEMI) myocardial infarction (principal); T82.855A Stenosis of coronary artery stent, initial encounter; E78.5 Hyperlipidemia, unspecified; I25.110 Atherosclerotic heart disease of native coronary artery with unstable angina pectoris; I25.2 Old myocardial infarction; J42 Unspecified chronic bronchitis; J45.909 Unspecified asthma, uncomplicated; R31.9 Hematuria, unspecified; Z85.6 Personal history of leukemia
CPT/HCPCS: 71010; 80048; 80053; 80061; 82550; 82552; 83735; 83880; 84484; 85002; 85025; 85027; 85610; 85730; 93005; 93458; 93571; C1769; C1887; C1893; J0153; J1644; J7030; J7507; J7512; Q9967